=== PATIENT | male | born 1975 | race Caucasian/White ===

== ENCOUNTER 2017-07-17 19:35 | Inpatient (IN) | payer OTHER ==
[2017-07-17] MEDS ORDERED: ONDANSETRON 4 MG INJ IV (20:30)
[2017-07-17] MEDS ORDERED: NACL 0.9% 3 ML SYG IV (20:30)
[2017-07-17] MEDS ORDERED: morphine 2 MG INJ IV (20:30)
[2017-07-17 20:50] LABS: ADD MAN DIFF? NO
[2017-07-17 20:55] LABS: WHITE BLOOD COUNT 15.7 10^3/ul (4.8-10.8)
[2017-07-17 20:55] LABS: BASOPHIL # 0.1 10^3/ul (0.0-0.1); BASOPHILS % 0.3 % (0.0-2.0); EOSINOPHILS # 0.4 10^3/ul (0.0-0.5); EOSINOPHILS % 2.5 % (0.0-7.0); HEMATOCRIT 47.8 % (42.0-52.0); HEMOGLOBIN 15.8 g/dl (14.0-18.0); LYMPHOCYTES # 3.1 10^3/ul (0.8-2.9); LYMPHOCYTES % 19.9 % (15.0-51.0); MEAN CORPUSCULAR HEMOGLOBIN 28.3 pg (29.0-33.0); MEAN CORPUSCULAR HGB CONC 33.1 g/dl (32.0-37.0); MEAN CORPUSCULAR VOLUME 85.5 fl (82.0-101.0); MEAN PLATELET VOLUME 9.2 fl (7.4-10.4); MONOCYTE # 1.3 10^3/ul (0.3-0.9); MONOCYTES % 8.2 % (0.0-11.0); NEUTROPHIL # 10.8 10^3/ul (1.6-7.5); NEUTROPHILS % 68.5 % (39.0-77.0); PLATELET COUNT 277 10^3/UL (140-415); RED BLOOD COUNT 5.59 10^6/ul (4.70-6.10); RED CELL DISTRIBUTION WIDTH 12.3 % (11.5-14.5)
[2017-07-17 21:06] LABS: HEMOGLOBIN A1C 5.3 % (0-5.9)
[2017-07-17 21:14] LABS: INR 0.99; PROTIME 13.2 Sec (11.9-14.9)
[2017-07-17 21:15] LABS: PARTIAL THROMBOPLASTIN TIME 30.2 Sec (25.0-35.0)
[2017-07-17 21:28] LABS: ALANINE AMINOTRANSFERASE 47 IU/L (13-69); ALBUMIN 3.8 g/dl (3.3-4.9); ALBUMIN/GLOBULIN RATIO 1.15; ALKALINE PHOSPHATASE 66 IU/L (42-121); ANION GAP 11 (8-16); ASPARTATE AMINO TRANSFERASE 22 IU/L (15-46); BILIRUBIN,INDIRECT 1.7 mg/dl (0-1.1); BILIRUBIN,TOTAL 1.7 mg/dl (0.2-1.3); BLOOD UREA NITROGEN 8 mg/dl (7-20); CALCIUM 8.7 mg/dl (8.4-10.2); CARBON DIOXIDE 31 mmol/L (21-31); CHLORIDE 103 mmol/L (97-110); CHOL/HDL RATIO 5.2 RATIO; CHOLESTEROL 190 mg/dl (100-200); CREATININE 0.97 mg/dl (0.61-1.24); GLUCOSE 93 mg/dl (70-220); HDL CHOLESTEROL 36 mg/dl (27-67); LDL CHOLESTEROL,CALCULATED 136 mg/dl; MAGNESIUM 1.6 mg/dl (1.7-2.5); POTASSIUM 4.2 mmol/L (3.5-5.1); SODIUM 141 mmol/L (135-144); TOTAL PROTEIN 7.1 g/dl (6.1-8.1); TRIGLYCERIDES 91 mg/dl (0-149)
[2017-07-17] MEDS: SOD CHLORIDE 0.9% 1,000 ML IV (21:28)
[2017-07-17] MEDS ORDERED: ACETAMINOPHEN 1000MG/100ML IV 100 ML IVPB (21:30)
[2017-07-17 21:45] LABS: FREE THYROXINE INDEX (Calc) 2.16 ug/ml (0.65-3.89); T3 UPTAKE 31.3 % (23.5-40.5); T4 (THYROXINE) 6.9 ug/dl (5.5-11.0)
[2017-07-17] MEDS ORDERED: PIPER-TAZO 3.375 GM IV (PMX) 100 ML IVPB (22:00)
[2017-07-17 22:41] LABS: LACTIC ACID 0.8 mmol/L (0.5-2.0)
[2017-07-17] MEDS: PIPER-TAZO 3.375 GM IV (PMX) 100 ML IVPB (23:30)
[2017-07-17] MEDS: morphine LIQ (10 MG/5 ML) CUP PO (23:54)
[2017-07-18] MEDS: MAGNESIUM SULFATE 2 GM/50 ML 50 ML IVPB
[2017-07-18 01:47] LABS: LACTIC ACID 0.9 mmol/L (0.5-2.0)
[2017-07-18] MEDS: PIPER-TAZO 3.375 GM IV (PMX) 100 ML IVPB ×4 (05:25→23:22)
[2017-07-18 05:56] LABS: ADD MAN DIFF? NO
[2017-07-18 06:05] LABS: BASOPHILS % 0.3 % (0.0-2.0); EOSINOPHILS # 0.4 10^3/ul (0.0-0.5); EOSINOPHILS % 3.5 % (0.0-7.0); HEMATOCRIT 46.6 % (42.0-52.0); HEMOGLOBIN 15.4 g/dl (14.0-18.0); LYMPHOCYTES # 2.2 10^3/ul (0.8-2.9); LYMPHOCYTES % 19.2 % (15.0-51.0); MEAN CORPUSCULAR HEMOGLOBIN 28.1 pg (29.0-33.0); MEAN PLATELET VOLUME 9.3 fl (7.4-10.4); MONOCYTES % 8.5 % (0.0-11.0); NEUTROPHIL # 7.8 10^3/ul (1.6-7.5); NEUTROPHILS % 67.9 % (39.0-77.0); PLATELET COUNT 252 10^3/UL (140-415); RED BLOOD COUNT 5.48 10^6/ul (4.70-6.10); RED CELL DISTRIBUTION WIDTH 12.5 % (11.5-14.5)
[2017-07-18 06:05] LABS: WHITE BLOOD COUNT 11.5 10^3/ul (4.8-10.8)
[2017-07-18] MEDS: SOD CHLORIDE 0.9% 1,000 ML IV ×4 (06:10→23:15)
[2017-07-18 06:45] LABS: ALANINE AMINOTRANSFERASE 74 IU/L (13-69); ALBUMIN 3.6 g/dl (3.3-4.9); ALBUMIN/GLOBULIN RATIO 1.12; ALKALINE PHOSPHATASE 88 IU/L (42-121); ANION GAP 11 (8-16); ASPARTATE AMINO TRANSFERASE 49 IU/L (15-46); BILIRUBIN,INDIRECT 2.6 mg/dl (0-1.1); BILIRUBIN,TOTAL 2.6 mg/dl (0.2-1.3); BLOOD UREA NITROGEN 9 mg/dl (7-20); CALCIUM 8.7 mg/dl (8.4-10.2); CARBON DIOXIDE 29 mmol/L (21-31); CHLORIDE 105 mmol/L (97-110); CREATININE 0.99 mg/dl (0.61-1.24); GLUCOSE 94 mg/dl (70-220); POTASSIUM 4.1 mmol/L (3.5-5.1); SODIUM 141 mmol/L (135-144); TOTAL PROTEIN 6.8 g/dl (6.1-8.1)
[2017-07-18] MEDS: ACETAMINOPHEN 325 MG TAB PO ×2 (09:12→20:45)
[2017-07-19] MEDS: SOD CHLORIDE 0.9% 1,000 ML IV ×4 (02:10→23:42)
[2017-07-19] MEDS: PIPER-TAZO 3.375 GM IV (PMX) 100 ML IVPB ×4 (05:30→23:42)
[2017-07-19 05:53] LABS: ADD MAN DIFF? NO
[2017-07-19 05:58] LABS: WHITE BLOOD COUNT 10.4 10^3/ul (4.8-10.8)
[2017-07-19 05:58] LABS: BASOPHILS % 0.3 % (0.0-2.0); EOSINOPHILS # 0.5 10^3/ul (0.0-0.5); EOSINOPHILS % 4.6 % (0.0-7.0); HEMATOCRIT 46.1 % (42.0-52.0); HEMOGLOBIN 15.2 g/dl (14.0-18.0); LYMPHOCYTES # 2.8 10^3/ul (0.8-2.9); LYMPHOCYTES % 26.9 % (15.0-51.0); MEAN CORPUSCULAR HEMOGLOBIN 28.1 pg (29.0-33.0); MEAN CORPUSCULAR VOLUME 85.4 fl (82.0-101.0); MEAN PLATELET VOLUME 9.3 fl (7.4-10.4); MONOCYTE # 0.9 10^3/ul (0.3-0.9); MONOCYTES % 8.6 % (0.0-11.0); NEUTROPHIL # 6.1 10^3/ul (1.6-7.5); PLATELET COUNT 265 10^3/UL (140-415); RED CELL DISTRIBUTION WIDTH 12.1 % (11.5-14.5)
[2017-07-19 06:41] LABS: ALANINE AMINOTRANSFERASE 50 IU/L (13-69); ALBUMIN 3.9 g/dl (3.3-4.9); ALBUMIN/GLOBULIN RATIO 1.11; ALKALINE PHOSPHATASE 79 IU/L (42-121); ANION GAP 14 (8-16); ASPARTATE AMINO TRANSFERASE 23 IU/L (15-46); BILIRUBIN,INDIRECT 2.1 mg/dl (0-1.1); BILIRUBIN,TOTAL 2.1 mg/dl (0.2-1.3); BLOOD UREA NITROGEN 13 mg/dl (7-20); CALCIUM 8.5 mg/dl (8.4-10.2); CARBON DIOXIDE 27 mmol/L (21-31); CHLORIDE 104 mmol/L (97-110); CREATININE 1.07 mg/dl (0.61-1.24); GLUCOSE 76 mg/dl (70-220); SODIUM 141 mmol/L (135-144); TOTAL PROTEIN 7.4 g/dl (6.1-8.1)
[2017-07-19] MEDS: FAMOTIDINE 20 MG TAB PO (08:31)
[2017-07-19 14:57] LABS: HAAIG REFLEX REFLEX FILED
[2017-07-19] MEDS ORDERED: HYDROCODONE/APAP (5/325) TAB PO (15:30)
[2017-07-19] MEDS ORDERED: KETOROLAC 15 MG INJ IV (15:30)
[2017-07-19 15:37] LABS: HEPATITIS B SURFACE ANTIGEN NEGATIVE (NEGATIVE)
[2017-07-19 15:55] LABS: HEPATITIS B CORE ANTIBODY NEGATIVE (NEGATIVE); HEPATITIS C VIRAL ANTIBODY NEGATIVE (NEGATIVE)
[2017-07-20 06:07] LABS: ADD MAN DIFF? NO
[2017-07-20 06:09] LABS: WHITE BLOOD COUNT 8.2 10^3/ul (4.8-10.8)
[2017-07-20 06:10] LABS: BASOPHIL # 0.1 10^3/ul (0.0-0.1); BASOPHILS % 0.6 % (0.0-2.0); EOSINOPHILS # 0.7 10^3/ul (0.0-0.5); EOSINOPHILS % 9.1 % (0.0-7.0); HEMATOCRIT 46.9 % (42.0-52.0); HEMOGLOBIN 15.5 g/dl (14.0-18.0); LYMPHOCYTES # 2.8 10^3/ul (0.8-2.9); LYMPHOCYTES % 34.2 % (15.0-51.0); MEAN CORPUSCULAR HEMOGLOBIN 28.1 pg (29.0-33.0); MEAN CORPUSCULAR VOLUME 85.1 fl (82.0-101.0); MEAN PLATELET VOLUME 9.3 fl (7.4-10.4); MONOCYTE # 0.7 10^3/ul (0.3-0.9); MONOCYTES % 9.1 % (0.0-11.0); NEUTROPHIL # 3.8 10^3/ul (1.6-7.5); NEUTROPHILS % 46.4 % (39.0-77.0); PLATELET COUNT 299 10^3/UL (140-415); RED BLOOD COUNT 5.51 10^6/ul (4.70-6.10); RED CELL DISTRIBUTION WIDTH 11.9 % (11.5-14.5)
[2017-07-20 06:36] LABS: ALANINE AMINOTRANSFERASE 45 IU/L (13-69); ALBUMIN 3.7 g/dl (3.3-4.9); ALBUMIN/GLOBULIN RATIO 1.05; ALKALINE PHOSPHATASE 73 IU/L (42-121); ANION GAP 13 (8-16); ASPARTATE AMINO TRANSFERASE 18 IU/L (15-46); BILIRUBIN,INDIRECT 1.3 mg/dl (0-1.1); BILIRUBIN,TOTAL 1.3 mg/dl (0.2-1.3); BLOOD UREA NITROGEN 9 mg/dl (7-20); CARBON DIOXIDE 28 mmol/L (21-31); CHLORIDE 107 mmol/L (97-110); CREATININE 1.04 mg/dl (0.61-1.24); GLUCOSE 82 mg/dl (70-220); POTASSIUM 4.4 mmol/L (3.5-5.1); SODIUM 144 mmol/L (135-144); TOTAL PROTEIN 7.2 g/dl (6.1-8.1)
[2017-07-20] MEDS: PIPER-TAZO 3.375 GM IV (PMX) 100 ML IVPB ×4 (06:37→23:45)
[2017-07-20] MEDS: ACETAMINOPHEN 325 MG TAB PO ×2 (07:52→23:51)
[2017-07-20] MEDS: FAMOTIDINE 20 MG TAB PO (08:52)
[2017-07-20] MEDS: SOD CHLORIDE 0.9% 1,000 ML IV (12:36)
[2017-07-20 20:22] LABS: OCCULT BLOOD STOOL NEGATIVE (NEGATIVE)
[2017-07-21] MEDS: SOD CHLORIDE 0.9% 1,000 ML IV (04:18)
[2017-07-21 05:50] LABS: ADD MAN DIFF? NO
[2017-07-21 05:52] LABS: BASOPHIL # 0.1 10^3/ul (0.0-0.1); BASOPHILS % 0.9 % (0.0-2.0); EOSINOPHILS # 1.2 10^3/ul (0.0-0.5); EOSINOPHILS % 15.2 % (0.0-7.0); HEMATOCRIT 46.5 % (42.0-52.0); HEMOGLOBIN 15.4 g/dl (14.0-18.0); LYMPHOCYTES # 2.8 10^3/ul (0.8-2.9); LYMPHOCYTES % 35.1 % (15.0-51.0); MEAN CORPUSCULAR HEMOGLOBIN 28.3 pg (29.0-33.0); MEAN CORPUSCULAR HGB CONC 33.1 g/dl (32.0-37.0); MEAN CORPUSCULAR VOLUME 85.3 fl (82.0-101.0); MEAN PLATELET VOLUME 9.1 fl (7.4-10.4); MONOCYTE # 0.6 10^3/ul (0.3-0.9); MONOCYTES % 7.8 % (0.0-11.0); NEUTROPHIL # 3.3 10^3/ul (1.6-7.5); NEUTROPHILS % 40.6 % (39.0-77.0); PLATELET COUNT 325 10^3/UL (140-415); RED BLOOD COUNT 5.45 10^6/ul (4.70-6.10); RED CELL DISTRIBUTION WIDTH 11.9 % (11.5-14.5)
[2017-07-21 05:52] LABS: WHITE BLOOD COUNT 8.1 10^3/ul (4.8-10.8)
[2017-07-21 06:31] LABS: ALANINE AMINOTRANSFERASE 39 IU/L (13-69); ALBUMIN 3.7 g/dl (3.3-4.9); ALBUMIN/GLOBULIN RATIO 1.08; ALKALINE PHOSPHATASE 68 IU/L (42-121); ANION GAP 12 (8-16); ASPARTATE AMINO TRANSFERASE 23 IU/L (15-46); BILIRUBIN,INDIRECT 0.8 mg/dl (0-1.1); BILIRUBIN,TOTAL 0.8 mg/dl (0.2-1.3); BLOOD UREA NITROGEN 8 mg/dl (7-20); CALCIUM 8.9 mg/dl (8.4-10.2); CARBON DIOXIDE 28 mmol/L (21-31); CHLORIDE 108 mmol/L (97-110); CREATININE 1.05 mg/dl (0.61-1.24); GLUCOSE 88 mg/dl (70-220); POTASSIUM 4.1 mmol/L (3.5-5.1); SODIUM 144 mmol/L (135-144); TOTAL PROTEIN 7.1 g/dl (6.1-8.1)
[2017-07-21] MEDS: PIPER-TAZO 3.375 GM IV (PMX) 100 ML IVPB ×2 (06:35→12:18)
[2017-07-21] MEDS: FAMOTIDINE 20 MG TAB PO (08:04)
== END 2017-07-21 16:45 | disposition home or self-care (01) | DRG 872 ==
LOC: MS2 19:35
DX: A41.9 Sepsis, unspecified organism (principal); K57.20 Diverticulitis of large intestine with perforation and abscess without bleeding; K76.0 Fatty (change of) liver, not elsewhere classified; K40.90 Unilateral inguinal hernia, without obstruction or gangrene, not specified as recurrent; E80.6 Other disorders of bilirubin metabolism; R74.0 Nonspecific elevation of levels of transaminase and lactic acid dehydrogenase [LDH]; I25.10 Atherosclerotic heart disease of native coronary artery without angina pectoris; Z98.61 Coronary angioplasty status
CPT/HCPCS: 76870; 80053; 80061; 82270; 83036; 83605; 83735; 84436; 84443; 84479; 85025; 85610; 85730; 86704; 86709; 86803; 87340

== ENCOUNTER 2017-08-04 13:06 | Emergency (ER) | payer OTHER ==
[2017-08-04] MEDS: ONDANSETRON (ODT) 4 MG TAB ODT (14:11)
[2017-08-04] MEDS: HYDROCODONE/APAP (5/325) TAB PO (14:11)
== END 2017-08-04 15:14 | disposition home or self-care (01) ==
LOC: FTE 13:06
DX: R51 Headache (principal)
CPT/HCPCS: 70450; 99284-25

== ENCOUNTER 2017-08-10 22:46 | Emergency (ER) | payer OTHER ==
[2017-08-11] MEDS: IBUPROFEN 800 MG TAB PO (03:00)
== END 2017-08-11 04:40 | disposition home or self-care (01) ==
LOC: FTE 22:46
DX: K40.90 Unilateral inguinal hernia, without obstruction or gangrene, not specified as recurrent (principal); R40.2412 Glasgow coma scale score 13-15, at arrival to emergency department
CPT/HCPCS: 76536; 99284-25

== ENCOUNTER 2018-01-17 12:07 | Emergency (ER) | payer OTHER ==
[2018-01-17] MEDS ORDERED: DIPHENHYDRAMINE 50 MG INJ IV (12:39)
[2018-01-17] MEDS: SOD CHLORIDE 0.9% 1,000 ML IV (12:54)
[2018-01-17] MEDS: METOCLOPRAMIDE 10 MG INJ IV (12:54)
[2018-01-17] MEDS: KETOROLAC 30 MG INJ IV (12:54)
== END 2018-01-17 14:56 | disposition home or self-care (01) ==
LOC: FTE 12:07
DX: R51 Headache (principal)
CPT/HCPCS: 96361; 96374; 96375; 99284-25

== ENCOUNTER 2018-02-01 13:50 | Emergency (ER) | payer SELFPAY, OTHER | END 2018-02-01 17:34 | disposition left against medical advice (07) | LOC: E/R 13:50 | DX: Z53.21 Procedure and treatment not carried out due to patient leaving prior to being seen by health care provider (principal) ==

== ENCOUNTER 2018-02-02 09:47 | Emergency (ER) | payer OTHER ==
[2018-02-02] MEDS: ONDANSETRON 4 MG INJ IV (10:58)
[2018-02-02] MEDS: CIPROFLOXACIN 400MG/D5W 200 ML IVPB (10:58)
[2018-02-02 11:01] LABS: ADD MAN DIFF? NO
[2018-02-02] MEDS: metroNIDAZOLE 500 MG TAB PO (11:02)
[2018-02-02 11:04] LABS: WHITE BLOOD COUNT 8.7 10^3/ul (4.8-10.8)
[2018-02-02 11:04] LABS: BASOPHILS % 0.5 % (0.0-2.0); EOSINOPHILS % 11.7 % (0.0-7.0); HEMATOCRIT 50.4 % (42.0-52.0); HEMOGLOBIN 16.7 g/dl (14.0-18.0); LYMPHOCYTES # 2.4 10^3/ul (0.8-2.9); LYMPHOCYTES % 27.9 % (15.0-51.0); MEAN CORPUSCULAR HEMOGLOBIN 28.5 pg (29.0-33.0); MEAN CORPUSCULAR HGB CONC 33.1 g/dl (32.0-37.0); MEAN PLATELET VOLUME 9.5 fl (7.4-10.4); MONOCYTE # 0.6 10^3/ul (0.3-0.9); MONOCYTES % 7.1 % (0.0-11.0); NEUTROPHIL # 4.5 10^3/ul (1.6-7.5); NEUTROPHILS % 52.3 % (39.0-77.0); PLATELET COUNT 310 10^3/UL (140-415); RED BLOOD COUNT 5.86 10^6/ul (4.70-6.10); RED CELL DISTRIBUTION WIDTH 12.2 % (11.5-14.5)
[2018-02-02 11:07] LABS: ADD UMIC YES; UR ASCORBIC ACID NEGATIVE (NEGATIVE); UR BILIRUBIN (Dip) NEGATIVE (NEGATIVE); UR BLOOD (Dip) 1+ mg/dL (NEGATIVE); UR CLARITY CLEAR (CLEAR); UR COLOR YELLOW (YELLOW); UR GLUCOSE (Dip) NEGATIVE (NEGATIVE); UR KETONES (Dip) NEGATIVE (NEGATIVE); UR LEUKOCYTE ESTERASE (Dip) NEGATIVE Leu/ul (NEGATIVE); UR NITRITE (Dip) NEGATIVE (NEGATIVE); UR RBC 3 /HPF (0-5); UR SPECIFIC GRAVITY (Dip) 1.011 (1.003-1.030); UR TOTAL PROTEIN (Dip) NEGATIVE (NEGATIVE); UR UROBILINOGEN (Dip) 1+ mg/dL (NEGATIVE); UR WBC 0 /HPF (0-5)
[2018-02-02 11:23] LABS: INR 0.83; PROTIME 11.5 Sec (11.9-14.9); PT RATIO 0.9
[2018-02-02 11:24] LABS: ALANINE AMINOTRANSFERASE 39 IU/L (13-69); ALBUMIN 4.4 g/dl (3.3-4.9); ALBUMIN/GLOBULIN RATIO 1.41; ALKALINE PHOSPHATASE 71 IU/L (42-121); ANION GAP 9 (5-13); ASPARTATE AMINO TRANSFERASE 28 IU/L (15-46); BILIRUBIN,INDIRECT 0.9 mg/dl (0-1.1); BILIRUBIN,TOTAL 0.9 mg/dl (0.2-1.3); BLOOD UREA NITROGEN 10 mg/dl (7-20); CALCIUM 9.5 mg/dl (8.4-10.2); CARBON DIOXIDE 31 mmol/L (21-31); CHLORIDE 103 mmol/L (97-110); CREATININE 0.83 mg/dl (0.61-1.24); Estimated GFR > 60 mL/min (>60); GLUCOSE 84 mg/dl (70-220); LIPASE 103 U/L (23-300); PARTIAL THROMBOPLASTIN TIME 25.7 Sec (23.0-35.0); POTASSIUM 4.2 mmol/L (3.5-5.1); SODIUM 143 mmol/L (135-144); TOTAL PROTEIN 7.5 g/dl (6.1-8.1)
== END 2018-02-02 12:47 | disposition home or self-care (01) ==
LOC: FTE 09:47
DX: K57.92 Diverticulitis of intestine, part unspecified, without perforation or abscess without bleeding (principal)
CPT/HCPCS: 36415; 80053; 81001; 83690; 85025; 85610; 85730; 96374; 96375; 99284-25

== ENCOUNTER 2018-05-10 14:07 | Emergency (ER) | payer OTHER | END 2018-05-10 17:25 | disposition home or self-care (01) | LOC: FTE 17:25 | DX: R20.0 Anesthesia of skin (principal) | CPT/HCPCS: 73130; 73130-LT; 99283-25 ==